=== PATIENT | female | born 1990 | race Caucasian/White ===

== ENCOUNTER 2018-10-24 11:54 | Inpatient (IN) | payer MEDICAID, OTHER ==
--- NOTE | 2018-10-24 13:38 | ED ---
Psych HPI - General Source: patient, family, RN notes reviewed, old records reviewed Mode of arrival: ambulatory <Sandhya Negron - Last Filed: 10/24/18 18:11> <Gerard Gibson - Last Filed: 10/24/18 22:25> - General Chief Complaint: Psychiatric Symptoms Stated Complaint: petition Time Seen by Provider: 10/24/18 12:39 - History of Present Illness Initial Comments: is a 28-year-old female, presents emergency department today with her parents with chief complaint of acute psychosis. Patient reportedly lives in [place]. Her parents live in [place] for the summer and their camper. Patient reportedly lives in [place], and states that she recently was fired from her job. When family went to see Patient to collect her things to help her move back in with them in [place] Patient was exhibiting some psychosis behavior. Patient reportedly has had episodes of acute psychosis in the past which was spurred by marijuana and alcohol abuse. Patient was admitted for 3 weeks at [facility] in [place]. Patient reportedly has been having strange conversations and aggressive behavior and increased agitation. Family reports they noted this abnormal conversation on the phone yesterday she drove to [place] to pick the Patient up and bring her here. (Sandhya Negron) - Related Data Home Medications Medication Instructions Recorded Confirmed Cyclobenzaprine HCl 10 mg PO TID 10/24/18 10/24/18 Famotidine [Pepcid] 20 mg PO HS 10/24/18 10/24/18 Allergies Allergy/AdvReac Type Severity Reaction Status Date / Time No Known Allergies Allergy Verified 10/24/18 13:37 Review of Systems ROS Other: All systems not noted in ROS Statement are negative. <Sandhya Negron - Last Filed: 10/24/18 18:11> ROS Other: All systems not noted in ROS Statement are negative. <Gerard Gibson - Last Filed: 10/24/18 22:25> ROS Statement: Those systems with pertinent positive or pertinent negative responses have been documented in the HPI. Past Medical History Past Medical History: No Reported History History of Any Multi-Drug Resistant Organisms: None Reported Past Surgical History: No Surgical Hx Reported Past Psychological History: Anxiety, Depression, Panic Disorder Smoking Status: Former smoker Past Alcohol Use History: None Reported Past Drug Use History: Marijuana <Sandhya Negron - Last Filed: 10/24/18 18:11> General Exam Limitations: no limitations Head exam: Present: atraumatic, normocephalic, normal inspection Eye exam: Present: normal appearance, PERRL, EOMI. Absent: scleral icterus, conjunctival injection, periorbital swelling ENT exam: Present: normal exam, mucous membranes moist Neck exam: Present: normal inspection. Absent: tenderness, meningismus, lymphadenopathy Respiratory exam: Present: normal lung sounds bilaterally Cardiovascular Exam: Present: regular rate, normal rhythm, normal heart sounds. Absent: systolic murmur, diastolic murmur, rubs, gallop, clicks GI/Abdominal exam: Present: soft, normal bowel sounds. Absent: distended, tenderness, guarding, rebound, rigid Psychiatric exam: Present: agitated, other (Responding to auditory hallucinations. Patient has odd conversations and word salad noted. Patient's family reports that she's been paranoid.). Absent: normal affect, normal mood Skin exam: Present: warm, dry, intact, normal color. Absent: rash <Sandhya Negron - Last Filed: 10/24/18 18:11> - General Exam Comments Initial Comments: 28-year-old female. Anxious. Talking to herself, erratic conversation noted. (Sandhya Negron) Course Vital Signs 10/24/18 10/24/18 10/24/18 12:24 18:27 21:57 Temperature 98.9 F 98.6 F Pulse Rate 96 84 84 Respiratory 18 18 18 Rate Blood Pressure 136/87 138/74 141/89 O2 Sat by Pulse 99 94 L 98 Oximetry Medical Decision Making <Sandhya Negron - Last Filed: 10/24/18 18:11> <Gerard Gibson - Last Filed: 10/24/18 22:25> - Medical Decision Making 28-year-old female presents range from today with acute psychosis. Evidence of paranoid delusions and erratic conversation. Patient did become anxious and attempted to run out of the ER. Patient was then sedated with Ativan Benadryl Geodon. Patient has been sleeping comfortably. Patient's family is with Patient at this time and pending transfer to psychiatric facility. Patient's case discussed with Dr. MORGAN who will follow clinical certification. (Sandhya Negron) Patient was evaluated by EPS recommended inpatient admission to psychiatric unit. (Gerard Gibson) - Lab Data Lab Results 10/24/18 10/24/18 Range/Units 14:50 14:50 Urine Color Yellow Urine Appearance Cloudy H (Clear) Urine pH 6.0 (5.0-8.0) Ur Specific [place] 1.010 (1.001-1.035) Urine Protein Trace H (Negative) Urine Glucose (UA) Negative (Negative) Urine Ketones 2+ H (Negative) Urine Blood Moderate H (Negative) Urine Nitrite Negative (Negative) Urine Bilirubin Negative (Negative) Urine Urobilinogen <2.0 (<2.0) mg/dL Ur Leukocyte Esterase Trace H (Negative) Urine RBC 1 (0-5) /hpf Urine WBC 3 (0-5) /hpf Ur Squamous Epith Cells 14 H (0-4) /hpf Urine Bacteria Rare H (None) /hpf Urine Mucus Moderate H (None) /hpf Urine HCG, Qual Not Detected (Not Detectd) Urine Opiates Screen Not Detected (NotDetected) Ur Oxycodone Screen Not Detected (NotDetected) Urine Methadone Screen Not Detected (NotDetected) Ur Propoxyphene Screen Not Detected (NotDetected) Ur Barbiturates Screen Not Detected (NotDetected) U Tricyclic Antidepress Not Detected (NotDetected) Ur Phencyclidine Scrn Not Detected (NotDetected) Ur Amphetamines Screen Not Detected (NotDetected) U Methamphetamines Scrn Not Detected (NotDetected) U Benzodiazepines Scrn Not Detected (NotDetected) Urine Cocaine Screen Not Detected (NotDetected) U Marijuana (THC) Screen Detected H (NotDetected) Disposition <Sandhya Negron - Last Filed: 10/24/18 18:11> Decision Time: 22:25 <Gerard Gibson - Last Filed: 10/24/18 22:25> Clinical Impression: Psychosis Disposition: ADMITTED IP TO THIS HOSP
[2018-10-24] MEDS ORDERED: LORazepam 2 MG/ML INJ IM STA (14:39)
[2018-10-24] MEDS ORDERED: diphenhydrAMINE 50 MG/ML 1 ML VIAL IM STA (14:39)
[2018-10-24] MEDS ORDERED: ZIPRASIDONE 20 MG VIAL IM STA (14:39)
[2018-10-24 15:09] LABS: Appearance,Urine Cloudy (Clear); Bacteria,Urine Rare /hpf; Bilirubin,Urine Negative (Negative); Blood,Urine Moderate (Negative); Color,Urine Yellow; Glucose,Urine (UA) Negative (Negative); Ketones,Urine 2+ (Negative); Leukocyte Esterase,Urine Trace (Negative); Mucus,Urine Moderate /hpf; Nitrite,Urine Negative (Negative); Protein,Urine Trace (Negative); RBC,Urine 1 /hpf (0-5); Squamous Epithelial Cell,Urine 14 /hpf (0-4); Urobilinogen,Urine <2.0 mg/dL (<2.0); WBC,Urine 3 /hpf (0-5)
[2018-10-24 15:15] LABS: Amphetamine Screen,Urine Not Detected (NotDetected); Barbiturate Screen,Urine Not Detected (NotDetected); Benzodiazepines Screen,Urine Not Detected (NotDetected); Cocaine Screen,Urine Not Detected (NotDetected); Methadone Screen, Urine Not Detected (NotDetected); Opiate Screen,Urine Not Detected (NotDetected); Oxycodone Screen, Urine Not Detected (NotDetected); Phencyclidine Screen,Urine Not Detected (NotDetected); Tricyclic Antidepressant,Urine Not Detected (NotDetected); Urn Cannabinoid Scrn Detected (NotDetected)
[2018-10-24] MEDS ORDERED: LORazepam 1 MG TAB PO PRN (22:35)
[2018-10-24] MEDS ORDERED: MAGNESIUM HYDROXIDE 2,400 MG/10 ML CUP PO PRN (22:35)
[2018-10-24] MEDS ORDERED: MAG HYDROX/AL HYDROX/SIMETH 30 ML CUP PO PRN (22:35)
[2018-10-24] MEDS ORDERED: LORazepam 2 MG/ML INJ IM PRN (22:44)
[2018-10-24] MEDS ORDERED: ZIPRASIDONE 20 MG VIAL IM PRN (23:00)
--- NOTE | 2018-10-25 00:33 | P.CONS ---
History of Present Illness - Reason for Consult Consult date: 10/25/18 - History of Present Illness The patient is a 28 yo F with a PMH of bipolar disorder who was brought into the ED by her parents due to psychotic behavior. The patient reportedly had recently lost her job and lives in [place]. Her parents who live in [place] were visiting in [place] when they noticed something strange when the spoke with her on the phone. They subsequently went to her place to find her in psychosis. The patient was seen in the MHU. Patient's thought process was disorganized during the interview. She however reported that she does not have any medical conditions nor does she take any medications. She did endorse a history of marijuana abuse. She otherwise denied any active complaints. Denied chest pain, SOB, nausea, vomiting, abdominal pain, diarrhea, fever, or chills. Review of Systems Pertinent positives and negatives as discussed in HPI, a complete review of systems was performed and all other systems are negative. Past Medical History Past Medical History: No Reported History History of Any Multi-Drug Resistant Organisms: None Reported Past Surgical History: No Surgical Hx Reported Past Psychological History: Anxiety, Depression, Panic Disorder Smoking Status: Former smoker Past Alcohol Use History: None Reported Past Drug Use History: Marijuana Medications and Allergies Home Medications Medication Instructions Recorded Confirmed Type Cyclobenzaprine HCl 10 mg PO TID 10/24/18 10/24/18 History Famotidine [Pepcid] 20 mg PO HS 10/24/18 10/24/18 History Allergies Allergy/AdvReac Type Severity Reaction Status Date / Time No Known Allergies Allergy Verified 10/24/18 13:37 Physical Exam Vitals: Vital Signs Temp Pulse Resp BP Pulse Ox 10/24/18 21:57 98.6 F 84 18 141/89 98 10/24/18 18:27 84 18 138/74 94 L 10/24/18 12:24 98.9 F 96 18 136/87 99 Intake and Output 10/24/18 10/24/18 10/25/18 14:59 22:59 06:59 Other: Weight 56.699 kg General: non toxic, no distress, appears at stated age, normal weight Derm: no unusual rashes/lesions no unusual ecchymoses, warm, dry Head: atraumatic, normocephalic, symmetric Eyes: EOMI, no lid lag, anicteric sclera, pupils equal round reactive to light ENT: Nose and ears atraumatic, no thrush, no pharyngeal erythema Neck: No thyromegaly, no cervical lymphadenopathy, trachea midline, supple Mouth: no lip lesion, mucus membranes moist Cardiovascular: S1S2 reg, no murmur, positive posterior tibial pulse bilateral, no edema, capillary refill less than 2 seconds Lungs: CTA bilateral, no rhonchi, no rales , no accessory muscle use Abdominal: soft, nontender to palpation, no guarding, no appreciable organomegaly, normal bowel sounds Ext: no gross muscle atrophy, muscle strength 5 out of 5 in all 4 extremities grossly, no contractures, Neuro: CN II-XI grossly intact, light touch intact all 4 extremities, finger to nose within normal limits, Psych: Alert, oriented, anxious, disorganized thought process with tangentiality Results Labs: Abnormal Lab Results - Last 24 Hours (Table) 10/24/18 Range/Units 14:50 Urine Appearance Cloudy H (Clear) Urine Protein Trace H (Negative) Urine Ketones 2+ H (Negative) Urine Blood Moderate H (Negative) Ur Leukocyte Esterase Trace H (Negative) Ur Squamous Epith Cells 14 H (0-4) /hpf Urine Bacteria Rare H (None) /hpf Urine Mucus Moderate H (None) /hpf U Marijuana (THC) Screen Detected H (NotDetected) Assessment and Plan Plan: Psychosis -As per psychiatry Marijuana abuse -Advised on importance of cessation Thank you for allowing us to participate in the care of this patient. We will follow peripherally. Do not hesitate to contact us with questions. Someone can be reached from the [facility] hospitalist group at all hours of the day at [phone].
[2018-10-25] MEDS: FAMOTIDINE 20 MG TAB PO SCH ×2 (03:10→22:13)
[2018-10-25 09:40] LABS: Basophils # (A) 0.1 k/uL (0-0.2); Basophils % (A) 1 %; Eosinophils # (A) 0.2 k/uL (0-0.7); Eosinophils % (A) 4 %; HCT 43.4 % (34.0-46.0); HGB 14.5 gm/dL (11.4-16.0); Lymphocytes # (A) 2.2 k/uL (1.0-4.8); Lymphocytes % (A) 36 %; MCH 31.7 pg (25.0-35.0); MCHC 33.4 g/dL (31.0-37.0); Mean Platelet Volume 8.7; Monocytes # (A) 0.5 k/uL (0-1.0); Monocytes % (A) 8 %; Neutrophils % (A) 50 %; Platelet Count 289 k/uL (150-450); RBC 4.57 m/uL (3.80-5.40); RDW 14.1 % (11.5-15.5); WBC 6.1 k/uL (3.8-10.6)
[2018-10-25 09:52] LABS: ALT 36 U/L (9-52); AST 36 U/L (14-36); African American GFR (CKD) >90 (>60 ml/min/1.73 sqM); Albumin 4.8 g/dL (3.5-5.0); Alkaline Phosphatase 63 U/L (38-126); Anion Gap 13 mmol/L; Blood Urea Nitrogen 8 mg/dL (7-17); Calcium 9.9 mg/dL (8.4-10.2); Carbon Dioxide 24 mmol/L (22-30); Chloride 103 mmol/L (98-107); Cholesterol 145 mg/dL (<200); Glucose 84 mg/dL (74-99); HDL Cholesterol 57 mg/dL (40-60); LDL Cholesterol,Calculated 71 mg/dL (0-99); Potassium 4.2 mmol/L (3.5-5.1); Sodium 140 mmol/L (137-145); Total Bilirubin 0.8 mg/dL (0.2-1.3); Total Protein 7.9 g/dL (6.3-8.2); Triglycerides 87 mg/dL (<150)
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
[2018-10-25] MEDS: ARIPiprazole 10 MG TAB PO SCH (12:22)
[2018-10-25 18:14] LABS: Hemoglobin A1C 4.8 % (4.0-6.0)
[2018-10-26] MEDS: ARIPiprazole 10 MG TAB PO SCH (07:57)
--- NOTE | 2018-10-26 12:30 | P.PN ---
Progress Note - Text Progress Note Date: 10/26/18 Interval history: Patient was seen today wandering the hallways and was agreeable to speak to machine sign writer. Patient states that he feels that he is in good spirits today and claims that he does not feel suicidal. He states that he has received call from his friend in [place] who is driving up to take him on a camping trip after he is discharged from the hospital which she is looking forward to. He states that he is going to groups and finding them helpful. He also claims that he would like that down to [place] after discharge and be reestablished in care at his local clinic. He claims that he had fair sleep last night and has had good appetite.. At this time patient denies any suicidal or homicidal ideations intent or plan. Denies any Auditory or visual hallucinations. Patient denies any side effects from the medications and has been compliant with meds. Mental status exam: General Appearance: Patient appears to be older than stated age is alert, pleasant, and cooperative. Behavior: No agitated behavior. Patient is calm and directable Speech: Patient's speech is fluent and nonpressured. Mood/Affect: Mood is improving, affect is congruent and constricted. Suicidality/Homicidality: Patient denies having any suicidal or homicidal ideation intent or plan. Perceptions: Patient denies any auditory or visual hallucinations. Though content/process: There is no evidence of any delusional thought content and thought process is linear and goal-directed. Memory and concentration: AOX3, grossly intact for the purposes of this session Judgment and insight: improving mildly , Assessment/Plan: Continue with current diagnosis. Patient continues to meet criteria for inpatient psychiatric admission for symptom stabilization and safety.Patient will be maintained on current psychotropic medication regimen. Monitor for medication compliance and for any psychotropic medication side effects. Will continue to monitor ongoing response to treatment.
[2018-10-26] MEDS: ACETAMINOPHEN TAB 325 MG TAB PO PRN ×2 (12:49→22:33)
[2018-10-26] MEDS: FAMOTIDINE 20 MG TAB PO SCH (22:03)
[2018-10-27] MEDS: ACETAMINOPHEN TAB 325 MG TAB PO PRN ×2 (06:33→15:08)
[2018-10-27] MEDS: ARIPiprazole 10 MG TAB PO SCH (09:02)
--- NOTE | 2018-10-27 12:35 | P.PN ---
Progress Note - Text Progress Note Date: 10/27/18 Interval history: The patient was seen this morning attending group and speaking to other patients and was agreeable to speak to securities underwriter was directable and calm. She states that she feels much better on the medications and claims that she feels "calmer" and claims that her mood is much more stable. Patient expressed concern about discharge and asked several times about having a family meeting and if that was a requirement or not. Patient states that she does not trust her family and states that she has a poor relationship with them. She states that she is going to groups and finding them helpful. She states that she is taking her medications. She denied any problems overnight and slept well. At this time patient denies any suicidal or homicidal ideations intent or plan. Denies any Auditory or visual hallucinations. Patient denies any side effects from the medications and has been compliant with meds. Mental status exam: General Appearance: Patient appears to be stated age is alert, directable and cooperative. Behavior: No agitated behavior. Patient is calm and directable Speech: Patient's speech is fluent and nonpressured. Mood/Affect: Mood is improving, affect is congruent and constricted. Suicidality/Homicidality: Patient denies having any suicidal or homicidal id eation intent or plan. Perceptions: Patient denies any auditory or visual hallucinations. Though content/process: There is no evidence of any delusional thought content and thought process is linear and goal-directed. Mild paranoia. Memory and concentration: AOX3, grossly intact for the purposes of this session Judgment and insight: improving mildly Assessment/Plan: Continue with current diagnosis. Patient continues to meet criteria for inpatient psychiatric admission for symptom stabilization and safety.Patient will be maintained on current psychotropic medication regimen. Patient is currently taking her Abilify 10 mg and not expressing any side effects. Monitor for medication compliance and for any psychotropic medication side effects. Will continue to monitor ongoing response to treatment.
[2018-10-27] MEDS: FAMOTIDINE 20 MG TAB PO SCH (21:14)
[2018-10-28] MEDS: ACETAMINOPHEN TAB 325 MG TAB PO PRN (06:12)
[2018-10-28] MEDS: ARIPiprazole 10 MG TAB PO SCH (08:53)
[2018-10-28] MEDS ORDERED: ARIPiprazole 5 MG TAB PO ONE (11:23)
--- NOTE | 2018-10-28 11:28 | P.PN ---
Progress Note - Text Interval history: The patient is found in the hallway she follows me to an interview room. She indicates she slept well last evening staff reported she slept 3 hours. Appetite stable. She reports her parents visited over the weekend. She states that she will likely have to go to [place] with them but would prefer not to. He describes traumatic experiences that occurred in [place] and that being back in that area makes her think about it again. We reviewed her psychotropic medication she has been compliant with the Abilify we discussed titrating the dose and she is reluctantly agreeable. She is reporting no side effects from the medicine. We spent some time discussing the need for her to manage her symptoms of mental illness by staying on medication and engaging in individual psychotherapy. Mental status exam: The patient is an alert female. She is dressed in her own clothing hygiene grooming adequate. She follows me to an interview room area she picks a chair and moves it all away against the wall furthest from me. She reports her mood is good. Affect is labile. She is tearful approximate 3 times during our brief interaction. She demonstrates no irritability or anger. She reports no suicidal or homicidal thoughts. Thought process has improved significantly compared to Sunday. She still demonstrates some circumstantial thinking and occasionally tangential thinking. Insight into her symptoms of mental illness remains impaired judgment has improved. She demonstrates no involuntary repetitive movements. Impression/plan: Bipolar 1 disorder most recent manic with psychosis, we will continue the Abilify and titrated to 15 mg daily to further stabilize symptoms. We are awaiting the deferral conference date. We will monitor her sleep in the evening. She is encouraged to participate in groups. She requires continued psychiatric hospitalization for further stabilization. Vital signs reviewed.
[2018-10-28] MEDS: FAMOTIDINE 20 MG TAB PO SCH (21:15)
[2018-10-29] MEDS: ARIPiprazole 15 MG TAB PO SCH (08:52)
--- NOTE | 2018-10-29 11:11 | P.PN ---
Progress Note - Text Interval history: The patient is found in the hallway she follows me to an interview room. She indicates her mood is improving. She continues to be troubled by the thought of going to [place] with her parents. At first she describes how that may be reasonable especially if it's a temporary move but later in the session she feels that she does not want to do that. We discussed the Abilify. She states that she is noticing no side effects from it she has tolerated the increased dose without any difficulty. We discussed her upcoming deferral conference and her questions were answered. She indicates she slept 8 hours last night staff recorded 3. She states she went to bed at 10 PM and woke at 6 AM. Appetite stable. She states that she is purposely restricting to lose some weight. Mental status exam: The patient is pleasant cooperative. Upon entering the room she takes a chair and pushes it to the wall opposite of me and she is in view of the window in the door. She remained seated in the chair. She demonstrates some increased psychomotor activity. She is pleasant she's cooperative she is overly apologetic at times. She does continue to demonstrate some lability of affect. She will have some appropriate smiling affect twice she becomes tearful. Thought process is certainly more organized than last week but there are times when she will become tangential again. She does self direct when she notices she is becoming tangential. She is reporting no suicidal or homicidal thoughts. She is reporting no auditory or visual hallucinations she is reporting no specific delusions. She may have some continued paranoid thought. Insight and judgment improving. Impression/plan: Bipolar 1 disorder most recent manic with psychosis, the patient will continue on her current medication we will consider titrating the Abilify further if needed. Any monitoring her for safety. She is improved from last week but is not yet sufficiently stabilized for discharge. We will look for the parents to visit her soon either during visiting or as part of a support meeting and we will gain their opinion as to how she is doing compared to her baseline function. Vital signs reviewed. We will continue to monitor her for safety.
[2018-10-29] MEDS: FAMOTIDINE 20 MG TAB PO SCH (21:06)
[2018-10-29] MEDS: ACETAMINOPHEN TAB 325 MG TAB PO PRN (21:07)
[2018-10-30] MEDS: ARIPiprazole 15 MG TAB PO SCH (08:00)
--- NOTE | 2018-10-30 11:37 | P.PN ---
Progress Note - Text Interval history: The patient is found in the hallway she follows me to an interview room. She indicates her mood is improving. He states that she slept last night staff reported she slept 6 hours. Appetite stable. She is looking forward to her family visiting this evening. She indicates that she has decided that she will return to [place] with them at least temporarily. We reviewed her psychotropic medication her questions were answered. We reviewed the importance of her having outpatient mental health follow-up back in [place]. Mental status exam: The patient is alert she is dressed in her own clothing. Hygiene and grooming are good. Eye contact is appropriate speech is fluent spontaneous nonpressured. Thought process is becoming more organized. She demonstrates no tangential thinking loose associations or flight of ideas. No suicidal or homicidal ideation intent or plan. She demonstrates no verbal or physical aggressiveness. She demonstrates no involuntary repetitive movements. Affect is brighter. Insight and judgment improving. Plan: Bipolar 1 disorder most recent manic with psychosis. Her symptoms are improving she appears to be clinically stabilizing. We will await the results of the family visitation this evening. We are awaiting a deferral conference as well. If she demonstrates further improvement and is clinically stable we will consider discharging her sometime this week. Vital signs reviewed.
[2018-10-30] MEDS: FAMOTIDINE 20 MG TAB PO SCH (20:18)
[2018-10-30] MEDS: ACETAMINOPHEN TAB 325 MG TAB PO PRN (20:19)
[2018-10-31] MEDS: ARIPiprazole 15 MG TAB PO SCH (08:02)
--- NOTE | 2018-10-31 10:51 | P.PN ---
Progress Note - Text Interval history: The patient is found in the hallway she follows me to an interview room. She indicates her mood is improved. Social work has receive input from her parents and they feel that the patient is doing well. They visited her last evening. The patient is sleeping at night staff reported she slept at least 7 hours. Appetite is stable she is attending groups. The patient has no questions or concerns regarding her medication. She is agreeable to returning with her parents to [place] upon discharge. Mental status exam: The patient is alert she is dressed in her own clothing hygiene grooming are good. Speech is fluent spontaneous nonpressured. She reports that her thought process continues to become more linear. Thought process appears more linear in conversation. She is reporting no suicidal ideation intent or plan. She is reporting no homicidal ideation intent or plan. She endorses no auditory or visual hallucinations or any specific delusions. There is no observed evidence of psychosis. She demonstrates no verbal or physical aggressiveness. She remains oriented to person place and date. Plan: The patient is clinically stabilizing. We are awaiting a deferral conference and are in contact with [facility]. I expect once we get the legal issue resolved she will be appropriate for discharge. Vital signs reviewed. She is encouraged to continue participating in the milieu. Continue to monitor her for safety.
[2018-10-31] MEDS: FAMOTIDINE 20 MG TAB PO SCH (20:40)
[2018-11-01 06:47] VITALS: BP 124/85; PULSE 105; RESP 18; TEMP 98.6
[2018-11-01] MEDS: ARIPiprazole 15 MG TAB PO SCH (08:26)
--- NOTE | 2018-11-01 09:47 | P.DS ---
Providers Date of admission: 10/24/18 22:02 Expected date of discharge: 11/01/18 Attending physician: Jose Gardner Consults: 10/24/18 22:35 Consult Physician Routine Consulting Provider: Junior Funk Consult Reason/Comments: H & P and medical care Do you want consulting provider notified?: Yes Primary care physician: Stated None - Discharge Diagnosis(es) (1) Severe manic bipolar 1 disorder with psychotic behavior Current Visit: Yes Status: Acute Priority: High Hospital Course: Brief summary of admission note: This patient is a 28-year-old single female who was admitted to the mental health unit through the emergency room for acute symptoms of shantell and psychosis. The patient presented with agitated behavior disorganization of thought lability of affect. She demonstrated tangential thinking loose associations and flight of ideas. She described a variety of disorganized delusions some of which were paranoid in nature. The patient has a long history of bipolar 1 disorder and she had not been on any medication. For full details please refer to my psychiatric evaluation dated 10/25/2018. Summary of hospital course: The patient was admitted to the mental health unit involuntarily. A second clinical certificate was completed. The patient was started on Abilify 10 mg daily. She did comply with the oral medication the dose was titrated to 15 mg daily during the course of the hospitalization. She demonstrated significant improvement fairly quickly with use of medication. Her sleep improved she was able to participate in meals. Early this week she was able to participate more appropriately in a conversation and her symptoms have been improving each day. Parents visited with her on Sunday and felt the patient was markedly improved. It is the patient's plan to return to [place] with her parents upon discharge. [facility] ultimately was allowed to sign in voluntarily. The patient was seen by internal medicine for routine history and physical exam. Social work met with the patient to complete a psychosocial assessment and at other times for discharge planning purposes. Mental status exam: The patient is an alert female appearing her s tated age. She is dressed in her own clothing hygiene grooming are good. Speech is fluent spontaneous nonpressured. She reports her mood is much improved affect is euthymic and congruent. She reports no suicidal or homicidal ideation intent or plan. She endorses no racing thoughts. Thought process is much more linear. She demonstrates no tangential thinking loose associations or flight of ideas. She no longer appears hypomanic or manic. She is reporting no specific delusional thought content. She demonstrates no verbal or physical aggressiveness she demonstrates no involuntary repetitive movements. Insight and judgment much improved. She spontaneously describes future oriented thinking. Impressions: 1. Bipolar 1 disorder most recent manic with psychosis, cannabis use disorder Plan: The patient will be discharged from the mental health unit today. Her parents will pick her up and she will return to [place] with them. She will follow-up with a clinic that she is familiar with in [place]. The patient will continue on Abilify 15 mg daily as a mood stabilizer. She is instructed to abstain from any use of alcohol marijuana or illicit drugs. We discussed that these have precipitate mood symptoms and elevate her safety risk. She does not wish to have any medication prescribed to her to prevent use of marijuana she does not feel that she needs to participate in inpatient chemical dependency treatment. At this time there is no imminent safety risk she is appropriate for transition to outpatient care. She is instructed to go to the nearest emergency room with any acute safety issues. Patient Condition at Discharge: Stable Plan - Discharge Summary New Discharge Prescriptions: New ARIPiprazole [Abilify] 15 mg PO DAILY #30 tab Continue Famotidine [Pepcid] 20 mg PO HS Discontinued Cyclobenzaprine HCl 10 mg PO TID Discharge Medication List Famotidine [Pepcid] 20 mg PO HS 10/24/18 [History] ARIPiprazole [Abilify] 15 mg PO DAILY #30 tab 11/01/18 [Rx] Follow up Appointment(s)/Referral(s): Haydee Melara [Other] - 11/22/18 10:00 am (Haydee Melara Please call if you need to reschedule ) [facility] [NON-STAFF] - 1 Week Patient Instructions/Handouts: Suicide Prevention (DC) Activity/Diet/Wound Care/Special Instructions: Activity and diet as tolerated. No guns or weapons in the home. Refrain from a lcohol and drugs not prescribed by your physician. Take all medications as prescribed, attend follow up appointments as scheduled. If in need of medication refills, please go to your primary care physician, or to your out patient psychiatric physician. If in crisis, please call , or go the nearest ER for an evaluation.
== END 2018-11-01 12:13 | disposition home or self-care (01) | DRG 885 ==
LOC: EC 11:54 → 3MHU 22:02
PROVIDERS: ADMIT Psychiatry & Neurology Psychiatry; ATTEND Psychiatry & Neurology Psychiatry
DX: F31.2 Bipolar disorder, current episode manic severe with psychotic features (principal); F23 Brief psychotic disorder; F10.10 Alcohol abuse, uncomplicated; F12.10 Cannabis abuse, uncomplicated; F41.0 Panic disorder [episodic paroxysmal anxiety]; Z56.0 Unemployment, unspecified; Z65.3 Problems related to other legal circumstances; Z87.891 Personal history of nicotine dependence
CPT/HCPCS: 80053; 80061; 80306; 81001; 81025; 82075; 83036; 84443; 85025; 96372; 99285